=== PATIENT | male | born 2000 | race Caucasian/White ===

== ENCOUNTER → 2021-10-15 | Outpatient (CLI) | payer BC ==
--- NOTE | 2021-10-15 16:02 | Diagnostic Imaging Report ---
PROCEDURE: US Scrotum. TECHNIQUE: Multiple real-time grayscale images were obtained over the scrotum in various projections bilaterally. INDICATION: Testicular pain. Right testicle measures 3.7 x 2.0 x 2.9 cm and the left testicle measures 4.2 x 2.0 x 2.9 cm. Both testes demonstrate homogeneous echotexture. No discrete testicular masses detected. There is blood flow to both testes. Right epididymis is unremarkable. Left epididymis does contain a 6 mm x 5 mm cyst in the head. No hydrocele or varicocele is identified on either side. IMPRESSION: 1. No evidence of testicular mass or vascular compromise. 2. Small left epididymal head cyst. Dictated by: Dictated on workstation # [id number]
== END ==
LOC: RAD 14:30
PROVIDERS: ATTEND Family Medicine
DX: N50.3 Cyst of epididymis (principal); N45.1 Epididymitis; N50.89 Other specified disorders of the male genital organs; Z72.51 High risk heterosexual behavior
CPT/HCPCS: 76870